=== PATIENT | male | born 1985 | race African-American/Black ===

== ENCOUNTER 2021-02-07 14:25 | Emergency (ER) | payer OTHER ==
[~2021-02-07] VITALS: Ht 180.3 cm; Wt 83.9 kg
[2021-02-07 15:30] VITALS: BP 123/63
== END 2021-02-07 15:56 | disposition home or self-care (01) ==
LOC: ER 14:25
DX: S01.01XA Laceration without foreign body of scalp, initial encounter (principal); F10.10 Alcohol abuse, uncomplicated; Y90.9 Presence of alcohol in blood, level not specified; W18.39XA Other fall on same level, initial encounter; Y93.89 Activity, other specified; Y92.89 Other specified places as the place of occurrence of the external cause; Y99.8 Other external cause status